=== PATIENT | female | born 1930 | race Asian ===

== ENCOUNTER 2017-12-29 02:06 | Inpatient (IN) | payer MEDICARE, OTHER ==
[2017-12-29 03:22] LABS: ADD MAN DIFF? NO
[2017-12-29 03:24] LABS: BASOPHILS % 0.3 % (0.0-2.0); EOSINOPHILS # 0.1 10^3/ul (0.0-0.5); EOSINOPHILS % 1.9 % (0.0-7.0); HEMATOCRIT 25.3 % (37.0-47.0); HEMOGLOBIN 7.6 g/dl (12.0-16.0); LYMPHOCYTES # 0.8 10^3/ul (0.8-2.9); LYMPHOCYTES % 25.2 % (15.0-51.0); MEAN CORPUSCULAR HEMOGLOBIN 33.2 pg (29.0-33.0); MEAN CORPUSCULAR VOLUME 110.5 fl (82.0-101.0); MONOCYTE # 0.4 10^3/ul (0.3-0.9); MONOCYTES % 12.3 % (0.0-11.0); NEUTROPHIL # 1.9 10^3/ul (1.6-7.5); PLATELET COUNT 155 10^3/UL (140-415); RED BLOOD COUNT 2.29 10^6/ul (4.20-5.40)
[2017-12-29 03:24] LABS: WHITE BLOOD COUNT 3.2 10^3/ul (4.8-10.8)
[2017-12-29 03:44] LABS: INR 1.05; PROTIME 13.8 Sec (11.9-14.9); PT RATIO 1.1
[2017-12-29 03:45] LABS: PARTIAL THROMBOPLASTIN TIME 33.5 Sec (25.0-35.0)
[2017-12-29 04:12] LABS: ANION GAP 20 (8-16); BLOOD UREA NITROGEN 30 mg/dl (7-20); CALCIUM 9.4 mg/dl (8.4-10.2); CARBON DIOXIDE 27 mmol/L (21-31); CHLORIDE 102 mmol/L (97-110); CREATININE 2.45 mg/dl (0.44-1.00); GLUCOSE 81 mg/dl (70-220); POTASSIUM 5.7 mmol/L (3.5-5.1); SODIUM 143 mmol/L (135-144)
[2017-12-29] MEDS: ALBUTEROL 0.5% (NEB) 2.5 MG/0.5 ML AMP INH (04:54)
[2017-12-29] MEDS ORDERED: DEXTROSE 50% 50 ML SYRINGE IV (05:00)
[2017-12-29] MEDS: ACETAMINOPHEN 325 MG TAB PO ×3 (05:13→16:51)
[2017-12-29] MEDS ORDERED: ACETAMINOPHEN 650MG/20.3ML CUP (05:14)
[2017-12-29] MEDS: INSULIN REGULAR, HUMAN 100 UNIT/1 ML 3ML VIAL IVP (05:21)
[2017-12-29] MEDS: DEXTROSE 50% 50 ML SYRINGE IV (05:22)
[2017-12-29] MEDS: NA POLYST SULFON 15 GM/60 ML BTL PO (05:22)
[2017-12-29] MEDS: DILTIAZEM 25 MG INJ IV (07:50)
[2017-12-29] MEDS: DIGOXIN 0.125 MG TAB PO ×2 (07:50→12:21)
[2017-12-29] MEDS ORDERED: ONDANSETRON 4 MG INJ IV (08:00)
[2017-12-29 08:14] LABS: ADD MAN DIFF? NO
[2017-12-29 08:16] LABS: ABNORMAL IP MESSAGE 1; EOSINOPHILS % 0.5 % (0.0-7.0); HEMATOCRIT 23.1 % (37.0-47.0); HEMOGLOBIN 7.2 g/dl (12.0-16.0); LYMPHOCYTES # 0.2 10^3/ul (0.8-2.9); LYMPHOCYTES % 7.9 % (15.0-51.0); MEAN CORPUSCULAR HEMOGLOBIN 33.8 pg (29.0-33.0); MEAN CORPUSCULAR HGB CONC 31.2 g/dl (32.0-37.0); MEAN CORPUSCULAR VOLUME 108.5 fl (82.0-101.0); MEAN PLATELET VOLUME 10.4 fl (7.4-10.4); NEUTROPHIL # 1.7 10^3/ul (1.6-7.5); NEUTROPHILS % 90.1 % (39.0-77.0); PLATELET COUNT 119 10^3/UL (140-415); RED BLOOD COUNT 2.13 10^6/ul (4.20-5.40); RED CELL DISTRIBUTION WIDTH 17.8 % (11.5-14.5)
[2017-12-29 08:19] LABS: POSITIVE DIFF @See below
[2017-12-29 08:34] LABS: ANION GAP 19 (8-16); BLOOD UREA NITROGEN 32 mg/dl (7-20); CALCIUM 9.6 mg/dl (8.4-10.2); CARBON DIOXIDE 25 mmol/L (21-31); CHLORIDE 103 mmol/L (97-110); CREATININE 2.62 mg/dl (0.44-1.00); GLUCOSE 79 mg/dl (70-220); SODIUM 143 mmol/L (135-144)
[2017-12-29 08:48] LABS: TROPONIN-I 0.153 ng/ml (0.000-0.120)
[2017-12-29] MEDS ORDERED: NUT TX IMPAIRED RENAL FXN SOY PO (09:00)
[2017-12-29] MEDS ORDERED: NITROGLYCERIN (SL) 0.4 MG TAB SL (09:00)
[2017-12-29] MEDS ORDERED: [UNRECOGNIZED DRUG - OTHER] PO (09:00)
[2017-12-29] MEDS: FOLIC ACID 1 MG TAB PO (09:21)
[2017-12-29] MEDS: MULTIVIT/CA CARB/B CMPLX/FA TAB PO (09:21)
[2017-12-29] MEDS: DOCUSATE SODIUM 100 MG CAP PO (09:21)
[2017-12-29] MEDS: MIDODRINE 5 MG TAB PO ×2 (09:21→16:52)
[2017-12-29] MEDS: DILTIAZEM 30 MG TAB PO ×3 (09:22→21:54)
[2017-12-29] MEDS: DEXTROSE 5%-0.45% NACL 1,000 ML IV (09:23)
[2017-12-29] MEDS: PANTOPRAZOLE 40 MG INJ IV (09:27)
[2017-12-29] MEDS: FLUDROCORTISONE 0.1 MG TAB PO (10:18)
[2017-12-29] MEDS: LACTOBACILLUS RHAMNOSUS CAP PO ×2 (10:18→21:54)
[2017-12-29] MEDS: DIGOXIN 500 MCG INJ IV (10:19)
[2017-12-29 10:21] LABS: WHITE BLOOD COUNT 1.9 10^3/ul (4.8-10.8)
[2017-12-29] MEDS: SEVELAMER CARBONATE 0.8 GM PKT PO ×2 (12:20→18:09)
[2017-12-29] MEDS ORDERED: NA POLYST SULFON 15 GM/60 ML BTL PO (13:00)
[2017-12-29] MEDS: HYDROCODONE/APAP (5/325) TAB PO (13:12)
[2017-12-29] MEDS: morphine 2 MG INJ IV ×2 (14:34→18:17)
[2017-12-29] MEDS: LORAZEPAM 0.5 MG TAB PO (15:40)
[2017-12-29] MEDS ORDERED: morphine 2 MG INJ IV (21:00)
[2017-12-29] MEDS: SENNA TAB PO (21:53)
[2017-12-29] MEDS: ATORVASTATIN 40 MG TAB PO (21:54)
[2017-12-29 23:00] LABS: HEMOGLOBIN 6.8 g/dl (12.0-16.0)
[2017-12-30] MEDS: PANTOPRAZOLE 40 MG INJ IV (06:00)
[2017-12-30 06:29] LABS: WHITE BLOOD COUNT 11.8 10^3/ul (4.8-10.8)
[2017-12-30 06:29] LABS: ABNORMAL IP MESSAGE 1; HEMATOCRIT 19.4 % (37.0-47.0); MEAN CORPUSCULAR HEMOGLOBIN 33.1 pg (29.0-33.0); MEAN CORPUSCULAR HGB CONC 30.9 g/dl (32.0-37.0); MEAN CORPUSCULAR VOLUME 107.2 fl (82.0-101.0); MEAN PLATELET VOLUME 11.6 fl (7.4-10.4); PLATELET COUNT 79 10^3/UL (140-415); RED BLOOD COUNT 1.81 10^6/ul (4.20-5.40); RED CELL DISTRIBUTION WIDTH 18.1 % (11.5-14.5)
[2017-12-30 06:47] LABS: CREATINE KINASE 930 IU/L (23-200)
[2017-12-30 06:47] LABS: PHOSPHORUS 6.4 mg/dl (2.5-4.9)
[2017-12-30 06:48] LABS: CK-MB 8.92 ng/ml (0.0-2.4)
[2017-12-30 06:53] LABS: TROPONIN-I 0.241 ng/ml (0.000-0.120)
[2017-12-30 07:07] LABS: ADD MAN DIFF? YES; POSITIVE DIFF @See below
[2017-12-30 07:31] LABS: ANION GAP 19 (8-16); BLOOD UREA NITROGEN 41 mg/dl (7-20); CALCIUM 9.3 mg/dl (8.4-10.2); CARBON DIOXIDE 25 mmol/L (21-31); CHLORIDE 101 mmol/L (97-110); CREATININE 3.56 mg/dl (0.44-1.00); POTASSIUM 5.9 mmol/L (3.5-5.1); SODIUM 139 mmol/L (135-144)
[2017-12-30 07:40] LABS: GLUCOSE 48 mg/dl (70-220)
[2017-12-30] MEDS: LACTOBACILLUS RHAMNOSUS CAP PO ×2 (08:49→20:25)
[2017-12-30] MEDS: DILTIAZEM 30 MG TAB PO ×3 (08:49→20:25)
[2017-12-30] MEDS: DOCUSATE SODIUM 100 MG CAP PO (08:50)
[2017-12-30] MEDS: MULTIVIT/CA CARB/B CMPLX/FA TAB PO (08:50)
[2017-12-30] MEDS: MIDODRINE 5 MG TAB PO ×2 (08:50→17:33)
[2017-12-30] MEDS: SEVELAMER CARBONATE 0.8 GM PKT PO ×3 (08:50→17:33)
[2017-12-30] MEDS: FOLIC ACID 1 MG TAB PO (08:50)
[2017-12-30] MEDS: FLUDROCORTISONE 0.1 MG TAB PO (08:50)
[2017-12-30 09:33] LABS: ANISOCYTOSIS 2+ (0-0); BAND NEUTROPHILS #M 2.1 10^3/ul (0.0-0.6); BAND NEUTROPHILS % (M) 18 % (0-4); EOSINOPHILS % (M) 1 % (0-7); LYMPHOCYTES #M 0.4 10^3/ul (0.8-2.9); LYMPHOCYTES % (M) 4 % (15-51); MONOCYTES % (M) 9 % (0-11); OVALOCYTES 2+ (0-0); PLATELET ESTIMATE DECREASED; POIKILOCYTOSIS 2+ (0-0); POLYCHROMASIA 1+ (0-0); SCHISTOCYTES 1+ (0-0); SEG NEUT #M 8.3 10^3/ul (1.6-7.5); SEGMENTED NEUTROPHILS (M) % 68 % (39-77); SMUDGE%M 2 % (0-0); TEAR DROP CELLS 1+ (0-0)
[2017-12-30] MEDS: EPOETIN 10000 UNITS/1 ML INJ (ESRD) SC (10:00)
[2017-12-30 11:13] LABS: IMMEDIATE SPIN CROSSMATCH 1 4
[2017-12-30] MEDS: NA POLYST SULFON 15 GM/60 ML BTL PO ×2 (15:09→18:51)
[2017-12-30 19:09] LABS: DIGOXIN 3.9 ng/ml (1.0-2.0)
[2017-12-30 20:15] LABS: HEPATITIS B SURFACE ANTIGEN NEGATIVE (NEGATIVE)
[2017-12-30] MEDS: SENNA TAB PO (20:21)
[2017-12-30] MEDS: ATORVASTATIN 40 MG TAB PO (20:21)
[2017-12-31] MEDS: HEPARIN 1000 UNITS/ML 10 ML INJ CATHETER
[2017-12-31] MEDS: PANTOPRAZOLE 40 MG INJ IV (05:53)
[2017-12-31 08:48] LABS: WHITE BLOOD COUNT 8.9 10^3/ul (4.8-10.8)
[2017-12-31 08:48] LABS: ABNORMAL IP MESSAGE 1; HEMATOCRIT 27.1 % (37.0-47.0); HEMOGLOBIN 8.8 g/dl (12.0-16.0); MEAN CORPUSCULAR HEMOGLOBIN 31.9 pg (29.0-33.0); MEAN CORPUSCULAR HGB CONC 32.5 g/dl (32.0-37.0); MEAN CORPUSCULAR VOLUME 98.2 fl (82.0-101.0); MEAN PLATELET VOLUME 11.4 fl (7.4-10.4); PLATELET COUNT 83 10^3/UL (140-415); RED BLOOD COUNT 2.76 10^6/ul (4.20-5.40); RED CELL DISTRIBUTION WIDTH 18.9 % (11.5-14.5)
[2017-12-31 08:54] LABS: ADD MAN DIFF? YES; POSITIVE DIFF @See below
[2017-12-31] MEDS: DILTIAZEM 30 MG TAB PO ×3 (09:00→21:00)
[2017-12-31 09:08] LABS: ALANINE AMINOTRANSFERASE 52 IU/L (13-69); ALBUMIN 2.7 g/dl (3.3-4.9); ALBUMIN/GLOBULIN RATIO 1.22; ALKALINE PHOSPHATASE 96 IU/L (42-121); ANION GAP 12 (8-16); ASPARTATE AMINO TRANSFERASE 54 IU/L (15-46); BILIRUBIN,INDIRECT 0.6 mg/dl (0-1.1); BILIRUBIN,TOTAL 0.6 mg/dl (0.2-1.3); BLOOD UREA NITROGEN 23 mg/dl (7-20); CALCIUM 8.6 mg/dl (8.4-10.2); CARBON DIOXIDE 29 mmol/L (21-31); CHLORIDE 104 mmol/L (97-110); CREATININE 2.18 mg/dl (0.44-1.00); GLUCOSE 60 mg/dl (70-220); POTASSIUM 3.5 mmol/L (3.5-5.1); SODIUM 141 mmol/L (135-144); TOTAL PROTEIN 4.9 g/dl (6.1-8.1)
[2017-12-31 09:17] LABS: CK-MB 2.53 ng/ml (0.0-2.4)
[2017-12-31 09:19] LABS: TROPONIN-I 0.216 ng/ml (0.000-0.120)
[2017-12-31 09:42] LABS: CK INDEX 0.7; CREATINE KINASE 373 IU/L (23-200)
[2017-12-31] MEDS: LACTOBACILLUS RHAMNOSUS CAP PO ×2 (09:49→21:13)
[2017-12-31] MEDS: MULTIVIT/CA CARB/B CMPLX/FA TAB PO (09:49)
[2017-12-31] MEDS: SEVELAMER CARBONATE 0.8 GM PKT PO ×3 (09:49→17:14)
[2017-12-31] MEDS: MIDODRINE 5 MG TAB PO ×2 (09:52→17:14)
[2017-12-31] MEDS: FLUDROCORTISONE 0.1 MG TAB PO (09:52)
[2017-12-31] MEDS: FOLIC ACID 1 MG TAB PO (09:52)
[2017-12-31] MEDS: DOCUSATE SODIUM 100 MG CAP PO (09:53)
[2017-12-31] MEDS: ERGOCALCIFEROL 50,000 UNIT CAP PO (09:53)
[2017-12-31] MEDS: DEXTROSE 5%-0.45% NACL 1,000 ML IV (10:02)
[2017-12-31 10:05] LABS: ANISOCYTOSIS 1+ (0-0); BAND NEUTROPHILS #M 2.4 10^3/ul (0.0-0.6); BAND NEUTROPHILS % (M) 27 % (0-4); EOSINOPHILS % (M) 1 % (0-7); LYMPHOCYTES #M 0.6 10^3/ul (0.8-2.9); LYMPHOCYTES % (M) 7 % (15-51); MONOCYTES % (M) 1 % (0-11); PLATELET ESTIMATE DECREASED; POLYCHROMASIA 1+ (0-0); SEG NEUT #M 5.9 10^3/ul (1.6-7.5); SEGMENTED NEUTROPHILS (M) % 64 % (39-77); SPHEROCYTES 1+ (0-0)
[2017-12-31] MEDS: ALBUMIN HUMAN 25% 50 ML IV (11:08)
[2017-12-31 16:23] LABS: FREE T4 (FREE THYROXINE) 0.95 ng/dl (0.85-1.93)
[2017-12-31] MEDS: EPOETIN 10000 UNITS/1 ML INJ (ESRD) SC (17:19)
[2017-12-31] MEDS: ATORVASTATIN 40 MG TAB PO (21:13)
[2017-12-31] MEDS: SENNA TAB PO (21:13)
[2018-01-01] MEDS: PANTOPRAZOLE 40 MG INJ IV (05:16)
[2018-01-01] MEDS: DEXTROSE 5%-0.45% NACL 1,000 ML IV (05:16)
[2018-01-01 07:52] LABS: ADD MAN DIFF? NO
[2018-01-01 08:00] LABS: WHITE BLOOD COUNT 6.8 10^3/ul (4.8-10.8)
[2018-01-01 08:00] LABS: ABNORMAL IP MESSAGE 1; BASOPHILS % 0.4 % (0.0-2.0); EOSINOPHILS # 0.1 10^3/ul (0.0-0.5); EOSINOPHILS % 1.2 % (0.0-7.0); HEMATOCRIT 28.6 % (37.0-47.0); HEMOGLOBIN 9.2 g/dl (12.0-16.0); LYMPHOCYTES # 0.7 10^3/ul (0.8-2.9); LYMPHOCYTES % 10.4 % (15.0-51.0); MEAN CORPUSCULAR HEMOGLOBIN 31.8 pg (29.0-33.0); MEAN CORPUSCULAR HGB CONC 32.2 g/dl (32.0-37.0); MONOCYTE # 0.4 10^3/ul (0.3-0.9); MONOCYTES % 6.5 % (0.0-11.0); NEUTROPHIL # 5.5 10^3/ul (1.6-7.5); NEUTROPHILS % 81.1 % (39.0-77.0); PLATELET COUNT 77 10^3/UL (140-415); RED BLOOD COUNT 2.89 10^6/ul (4.20-5.40); RED CELL DISTRIBUTION WIDTH 17.9 % (11.5-14.5)
[2018-01-01 08:07] LABS: POSITIVE DIFF @See below
[2018-01-01 08:22] LABS: MAGNESIUM 1.9 mg/dl (1.7-2.5)
[2018-01-01 08:22] LABS: PHOSPHORUS 4.8 mg/dl (2.5-4.9)
[2018-01-01 08:31] LABS: BLOOD UREA NITROGEN 33 mg/dl (7-20); CALCIUM 8.5 mg/dl (8.4-10.2); CARBON DIOXIDE 28 mmol/L (21-31); CHLORIDE 98 mmol/L (97-110); CREATININE 3.46 mg/dl (0.44-1.00); GLUCOSE 76 mg/dl (70-220); SODIUM 138 mmol/L (135-144)
[2018-01-01 09:00] LABS: ANION GAP 15 (8-16)
[2018-01-01 09:03] LABS: POTASSIUM 3.3 mmol/L (3.5-5.1)
[2018-01-01] MEDS: FOLIC ACID 1 MG TAB PO (09:33)
[2018-01-01] MEDS: SEVELAMER CARBONATE 0.8 GM PKT PO ×3 (09:33→17:37)
[2018-01-01] MEDS: FLUDROCORTISONE 0.1 MG TAB PO (09:33)
[2018-01-01] MEDS: MULTIVIT/CA CARB/B CMPLX/FA TAB PO (09:33)
[2018-01-01] MEDS: DOCUSATE SODIUM 100 MG CAP PO (09:34)
[2018-01-01] MEDS: MIDODRINE 5 MG TAB PO ×2 (09:35→17:42)
[2018-01-01] MEDS: LACTOBACILLUS RHAMNOSUS CAP PO ×2 (09:36→20:18)
[2018-01-01] MEDS: DILTIAZEM 30 MG TAB PO ×3 (09:37→20:19)
[2018-01-01] MEDS: POTASSIUM CHLORIDE (SR) 20 MEQ TAB PO (13:14)
[2018-01-01] MEDS ORDERED: ALBUMIN HUMAN 25% 50 ML IV (18:00)
[2018-01-01] MEDS ORDERED: SODIUM CHLORIDE 0.9% 1L BAG IV (18:00)
[2018-01-01] MEDS: SENNA TAB PO (20:18)
[2018-01-01] MEDS: ATORVASTATIN 40 MG TAB PO (20:18)
[2018-01-02] MEDS: DEXTROSE 5%-0.45% NACL 1,000 ML IV (04:13)
[2018-01-02] MEDS: PANTOPRAZOLE 40 MG INJ IV (05:29)
[2018-01-02] MEDS: SEVELAMER CARBONATE 0.8 GM PKT PO ×3 (08:50→17:20)
[2018-01-02 09:01] LABS: DIGOXIN 2.4 ng/ml (1.0-2.0)
[2018-01-02] MEDS: FOLIC ACID 1 MG TAB PO (09:23)
[2018-01-02] MEDS: LACTOBACILLUS RHAMNOSUS CAP PO ×2 (09:23→21:09)
[2018-01-02] MEDS: DOCUSATE SODIUM 100 MG CAP PO (09:24)
[2018-01-02] MEDS: MULTIVIT/CA CARB/B CMPLX/FA TAB PO (09:24)
[2018-01-02] MEDS: FLUDROCORTISONE 0.1 MG TAB PO (09:24)
[2018-01-02] MEDS: MIDODRINE 5 MG TAB PO (09:55)
[2018-01-02] MEDS: DILTIAZEM 30 MG TAB PO ×3 (09:55→21:09)
[2018-01-02] MEDS ORDERED: morphine 2 MG INJ (15:31)
[2018-01-02] MEDS: morphine 2 MG INJ IV (15:33)
[2018-01-02] MEDS: DILTIAZEM 25 MG INJ IV (15:34)
[2018-01-02] MEDS ORDERED: LEVALBUTEROL (NEB) 0.63 MG/3 ML AMP (15:34)
[2018-01-02] MEDS: LEVALBUTEROL (NEB) 0.63 MG/3 ML AMP HHN (15:43)
[2018-01-02 17:09] LABS: TROPONIN-I 0.075 ng/ml (0.000-0.120)
[2018-01-02] MEDS: EPOETIN 10000 UNITS/1 ML INJ (ESRD) SC (17:21)
[2018-01-02] MEDS: ATORVASTATIN 40 MG TAB PO (21:09)
[2018-01-02] MEDS: SENNA TAB PO (21:09)
[2018-01-02] MEDS: MEGESTROL (40 MG/ML) 10ML CUP PO (21:12)
[2018-01-03] MEDS: HEPARIN 1000 UNITS/ML 10 ML INJ CATHETER (03:13)
[2018-01-03] MEDS: PANTOPRAZOLE 40 MG INJ IV (05:42)
[2018-01-03 08:27] LABS: ADD MAN DIFF? NO
[2018-01-03 08:31] LABS: WHITE BLOOD COUNT 4.5 10^3/ul (4.8-10.8)
[2018-01-03 08:31] LABS: ABNORMAL IP MESSAGE 1; BASOPHILS % 0.9 % (0.0-2.0); EOSINOPHILS % 0.9 % (0.0-7.0); HEMATOCRIT 30.8 % (37.0-47.0); HEMOGLOBIN 9.8 g/dl (12.0-16.0); LYMPHOCYTES # 0.7 10^3/ul (0.8-2.9); MEAN CORPUSCULAR HEMOGLOBIN 31.6 pg (29.0-33.0); MEAN CORPUSCULAR HGB CONC 31.8 g/dl (32.0-37.0); MEAN CORPUSCULAR VOLUME 99.4 fl (82.0-101.0); MEAN PLATELET VOLUME 11.2 fl (7.4-10.4); MONOCYTE # 0.5 10^3/ul (0.3-0.9); MONOCYTES % 10.9 % (0.0-11.0); NEUTROPHIL # 3.2 10^3/ul (1.6-7.5); NEUTROPHILS % 70.2 % (39.0-77.0); PLATELET COUNT 85 10^3/UL (140-415); RED CELL DISTRIBUTION WIDTH 16.8 % (11.5-14.5)
[2018-01-03 08:45] LABS: POSITIVE DIFF @See below
[2018-01-03 09:04] LABS: ANION GAP 18 (8-16); BLOOD UREA NITROGEN 24 mg/dl (7-20); CALCIUM 8.8 mg/dl (8.4-10.2); CARBON DIOXIDE 25 mmol/L (21-31); CHLORIDE 100 mmol/L (97-110); GLUCOSE 57 mg/dl (70-220); POTASSIUM 4.2 mmol/L (3.5-5.1); SODIUM 139 mmol/L (135-144)
[2018-01-03] MEDS: LACTOBACILLUS RHAMNOSUS CAP PO ×2 (09:05→21:40)
[2018-01-03] MEDS: SEVELAMER CARBONATE 0.8 GM PKT PO ×3 (09:05→17:33)
[2018-01-03] MEDS: MULTIVIT/CA CARB/B CMPLX/FA TAB PO (09:05)
[2018-01-03] MEDS: DOCUSATE SODIUM 100 MG CAP PO (09:05)
[2018-01-03] MEDS: FOLIC ACID 1 MG TAB PO (09:05)
[2018-01-03] MEDS: MEGESTROL (40 MG/ML) 10ML CUP PO ×2 (09:05→21:39)
[2018-01-03] MEDS: DILTIAZEM 30 MG TAB PO ×3 (09:06→21:40)
[2018-01-03 09:07] LABS: PHOSPHORUS 4.2 mg/dl (2.5-4.9)
[2018-01-03 09:07] LABS: MAGNESIUM 1.9 mg/dl (1.7-2.5)
[2018-01-03] MEDS: LORAZEPAM 0.5 MG TAB PO (17:33)
[2018-01-03] MEDS ORDERED: HEPARIN 1000 UNITS/ML 10 ML INJ CATHETER (19:00)
[2018-01-03] MEDS ORDERED: ALBUMIN HUMAN 25% 50 ML IV (19:00)
[2018-01-03] MEDS ORDERED: SODIUM CHLORIDE 0.9% 1L BAG IV (19:00)
[2018-01-03] MEDS: ATORVASTATIN 40 MG TAB PO (21:40)
[2018-01-03] MEDS: SENNA TAB PO (21:40)
[2018-01-04] MEDS: PANTOPRAZOLE 40 MG INJ IV (06:02)
[2018-01-04 07:26] LABS: ADD MAN DIFF? NO
[2018-01-04 07:28] LABS: WHITE BLOOD COUNT 3.7 10^3/ul (4.8-10.8)
[2018-01-04 07:28] LABS: ABNORMAL IP MESSAGE 1; BASOPHILS % 1.1 % (0.0-2.0); EOSINOPHILS # 0.1 10^3/ul (0.0-0.5); EOSINOPHILS % 2.2 % (0.0-7.0); HEMATOCRIT 31.8 % (37.0-47.0); HEMOGLOBIN 10.1 g/dl (12.0-16.0); LYMPHOCYTES # 0.7 10^3/ul (0.8-2.9); LYMPHOCYTES % 18.3 % (15.0-51.0); MEAN CORPUSCULAR HEMOGLOBIN 32.6 pg (29.0-33.0); MEAN CORPUSCULAR HGB CONC 31.8 g/dl (32.0-37.0); MEAN CORPUSCULAR VOLUME 102.6 fl (82.0-101.0); MEAN PLATELET VOLUME 11.1 fl (7.4-10.4); MONOCYTE # 0.5 10^3/ul (0.3-0.9); MONOCYTES % 13.4 % (0.0-11.0); NEUTROPHIL # 2.4 10^3/ul (1.6-7.5); NEUTROPHILS % 64.5 % (39.0-77.0); PLATELET COUNT 93 10^3/UL (140-415); RED CELL DISTRIBUTION WIDTH 17.2 % (11.5-14.5)
[2018-01-04 07:49] LABS: POSITIVE DIFF @See below
[2018-01-04 07:58] LABS: ANION GAP 15 (8-16); BLOOD UREA NITROGEN 35 mg/dl (7-20); CARBON DIOXIDE 26 mmol/L (21-31); CHLORIDE 102 mmol/L (97-110); CREATININE 4.17 mg/dl (0.44-1.00); GLUCOSE 68 mg/dl (70-220); POTASSIUM 4.5 mmol/L (3.5-5.1); SODIUM 138 mmol/L (135-144)
[2018-01-04] MEDS: SEVELAMER CARBONATE 0.8 GM PKT PO ×3 (08:00→17:22)
[2018-01-04] MEDS: FOLIC ACID 1 MG TAB PO (08:13)
[2018-01-04] MEDS: DOCUSATE SODIUM 100 MG CAP PO (08:13)
[2018-01-04] MEDS: MEGESTROL (40 MG/ML) 10ML CUP PO ×2 (08:13→21:00)
[2018-01-04] MEDS: LACTOBACILLUS RHAMNOSUS CAP PO ×2 (08:13→21:00)
[2018-01-04] MEDS: MULTIVIT/CA CARB/B CMPLX/FA TAB PO (08:13)
[2018-01-04 08:28] LABS: MAGNESIUM 2.1 mg/dl (1.7-2.5)
[2018-01-04] MEDS: DILTIAZEM 30 MG TAB PO ×3 (08:55→21:00)
[2018-01-04] MEDS: DEXTROSE 5% 1,000 ML IV (11:42)
[2018-01-04] MEDS ORDERED: FENTAnyl 50 MCG/ML VIAL (17:43)
[2018-01-04] MEDS ORDERED: KETAMINE (100 MG/ML) 5 ML VIAL (17:44)
[2018-01-04] MEDS ORDERED: MIDAZOLAM 1 MG/ML 2 ML INJ (18:04)
[2018-01-04] MEDS ORDERED: PHENYLephrine (100 MCG/ML) 5ML SYG (18:07)
[2018-01-04] MEDS ORDERED: PHENYLephrine 10 MG INJ ×2 (18:21→18:22)
[2018-01-04] MEDS: HEPARIN 1000 UNITS/ML 10 ML INJ (18:23)
[2018-01-04] MEDS: POLYMYXIN/BACITRACIN 1L IRRIG (18:23)
[2018-01-04] MEDS: LIDOCAINE 1% (MPF) 30 ML INJ (18:23)
[2018-01-04] MEDS ORDERED: THROMBIN 5000 UNIT VIAL (18:44)
[2018-01-04] MEDS: GELATIN SIZE 100 SPONGE (18:49)
[2018-01-04] MEDS ORDERED: ETOMIDATE 20 MG INJ (19:25)
[2018-01-04] MEDS ORDERED: LIDOCAINE 2% (SDV) 5 ML INJ (19:25)
[2018-01-04] MEDS ORDERED: CEFAZOLIN 1 GM INJ (19:25)
[2018-01-04] MEDS ORDERED: ONDANSETRON 4 MG INJ (19:26)
[2018-01-04] MEDS: SENNA TAB PO (21:00)
[2018-01-04] MEDS: BALSAM PERU/CASTOR OIL 60 GM TUBE TOP (21:00)
[2018-01-04] MEDS: ATORVASTATIN 40 MG TAB PO (21:00)
[2018-01-05] MEDS: EPOETIN 10000 UNITS/1 ML INJ (ESRD) SC (06:09)
[2018-01-05] MEDS: PANTOPRAZOLE 40 MG INJ IV (06:09)
[2018-01-05 06:12] LABS: ADD MAN DIFF? NO
[2018-01-05 06:14] LABS: WHITE BLOOD COUNT 2.9 10^3/ul (4.8-10.8)
[2018-01-05 06:14] LABS: ABNORMAL IP MESSAGE 1; BASOPHILS % 0.7 % (0.0-2.0); EOSINOPHILS # 0.1 10^3/ul (0.0-0.5); HEMATOCRIT 28.2 % (37.0-47.0); HEMOGLOBIN 8.9 g/dl (12.0-16.0); LYMPHOCYTES # 0.3 10^3/ul (0.8-2.9); LYMPHOCYTES % 11.3 % (15.0-51.0); MEAN CORPUSCULAR HEMOGLOBIN 31.8 pg (29.0-33.0); MEAN CORPUSCULAR HGB CONC 31.6 g/dl (32.0-37.0); MEAN CORPUSCULAR VOLUME 100.7 fl (82.0-101.0); MEAN PLATELET VOLUME 11.1 fl (7.4-10.4); MONOCYTE # 0.3 10^3/ul (0.3-0.9); MONOCYTES % 8.9 % (0.0-11.0); NEUTROPHIL # 2.3 10^3/ul (1.6-7.5); NEUTROPHILS % 76.8 % (39.0-77.0); PLATELET COUNT 99 10^3/UL (140-415); RED CELL DISTRIBUTION WIDTH 17.3 % (11.5-14.5)
[2018-01-05 06:33] LABS: POSITIVE DIFF @See below
[2018-01-05 06:35] LABS: ANION GAP 10 (8-16); BLOOD UREA NITROGEN 17 mg/dl (7-20); CALCIUM 8.5 mg/dl (8.4-10.2); CARBON DIOXIDE 30 mmol/L (21-31); CHLORIDE 102 mmol/L (97-110); CREATININE 2.25 mg/dl (0.44-1.00); GLUCOSE 77 mg/dl (70-220); POTASSIUM 3.6 mmol/L (3.5-5.1); SODIUM 138 mmol/L (135-144)
[2018-01-05] MEDS: HEPARIN 1000 UNITS/ML 10 ML INJ CATHETER (07:12)
[2018-01-05] MEDS: LACTOBACILLUS RHAMNOSUS CAP PO ×2 (09:08→21:53)
[2018-01-05] MEDS: MULTIVIT/CA CARB/B CMPLX/FA TAB PO (09:08)
[2018-01-05] MEDS: MEGESTROL (40 MG/ML) 10ML CUP PO ×2 (09:08→21:54)
[2018-01-05] MEDS: ASPIRIN 81 MG TAB PO (09:08)
[2018-01-05] MEDS: SEVELAMER CARBONATE 0.8 GM PKT PO ×3 (09:08→17:39)
[2018-01-05] MEDS: BALSAM PERU/CASTOR OIL 60 GM TUBE TOP ×2 (09:08→21:54)
[2018-01-05] MEDS: HYDROCODONE/APAP (5/325) TAB PO ×2 (09:08→21:53)
[2018-01-05] MEDS: DOCUSATE SODIUM 100 MG CAP PO (09:09)
[2018-01-05] MEDS: FOLIC ACID 1 MG TAB PO (09:09)
[2018-01-05] MEDS: DILTIAZEM 30 MG TAB PO ×3 (09:09→21:54)
[2018-01-05] MEDS: LORAZEPAM 0.5 MG TAB PO (17:44)
[2018-01-05] MEDS: SENNA TAB PO (21:53)
[2018-01-05] MEDS: ATORVASTATIN 40 MG TAB PO (21:54)
[2018-01-06] MEDS ORDERED: PENDING SANTYL ORDER FOR WOUND CARE XX (05:00)
[2018-01-06] MEDS: PANTOPRAZOLE 40 MG INJ IV (05:26)
[2018-01-06] MEDS: FOLIC ACID 1 MG TAB PO (09:03)
[2018-01-06] MEDS: ASPIRIN 81 MG TAB PO (09:03)
[2018-01-06] MEDS: SEVELAMER CARBONATE 0.8 GM PKT PO ×3 (09:03→17:59)
[2018-01-06] MEDS: DOCUSATE SODIUM 100 MG CAP PO (09:03)
[2018-01-06] MEDS: MEGESTROL (40 MG/ML) 10ML CUP PO ×2 (09:03→20:37)
[2018-01-06] MEDS: MULTIVIT/CA CARB/B CMPLX/FA TAB PO (09:03)
[2018-01-06] MEDS: DILTIAZEM 30 MG TAB PO ×3 (09:04→20:36)
[2018-01-06] MEDS: BALSAM PERU/CASTOR OIL 60 GM TUBE TOP ×2 (09:04→20:38)
[2018-01-06] MEDS: LACTOBACILLUS RHAMNOSUS CAP PO ×2 (12:14→21:33)
[2018-01-06] MEDS: LORAZEPAM 0.5 MG TAB PO (17:59)
[2018-01-06] MEDS ORDERED: SODIUM CHLORIDE 0.9% 1L BAG IV (18:00)
[2018-01-06] MEDS ORDERED: ALBUMIN HUMAN 25% 50 ML IV (18:00)
[2018-01-06] MEDS: HYDROCODONE/APAP (5/325) TAB PO ×2 (20:08→21:32)
[2018-01-06] MEDS: ATORVASTATIN 40 MG TAB PO (20:35)
[2018-01-06] MEDS: SENNA TAB PO (20:36)
[2018-01-07] MEDS: ACETAMINOPHEN 325 MG TAB PO (04:14)
[2018-01-07] MEDS: PANTOPRAZOLE 40 MG INJ IV (05:23)
[2018-01-07] MEDS: DILTIAZEM 30 MG TAB PO ×3 (09:00→20:12)
[2018-01-07] MEDS: LACTOBACILLUS RHAMNOSUS CAP PO ×2 (09:05→20:12)
[2018-01-07] MEDS: SEVELAMER CARBONATE 0.8 GM PKT PO ×3 (09:05→17:12)
[2018-01-07] MEDS: FOLIC ACID 1 MG TAB PO (09:06)
[2018-01-07] MEDS: MULTIVIT/CA CARB/B CMPLX/FA TAB PO (09:06)
[2018-01-07] MEDS: ERGOCALCIFEROL 50,000 UNIT CAP PO (09:06)
[2018-01-07] MEDS: DOCUSATE SODIUM 100 MG CAP PO (09:07)
[2018-01-07] MEDS: MEGESTROL (40 MG/ML) 10ML CUP PO ×2 (09:08→20:13)
[2018-01-07] MEDS: ASPIRIN 81 MG TAB PO (09:08)
[2018-01-07] MEDS: BALSAM PERU/CASTOR OIL 60 GM TUBE TOP ×2 (09:09→20:13)
[2018-01-07 11:50] LABS: ADD MAN DIFF? NO
[2018-01-07 11:54] LABS: ABNORMAL IP MESSAGE 1; BASOPHILS % 0.4 % (0.0-2.0); EOSINOPHILS # 0.1 10^3/ul (0.0-0.5); EOSINOPHILS % 0.6 % (0.0-7.0); HEMATOCRIT 28.5 % (37.0-47.0); HEMOGLOBIN 8.9 g/dl (12.0-16.0); LYMPHOCYTES # 0.5 10^3/ul (0.8-2.9); LYMPHOCYTES % 4.4 % (15.0-51.0); MEAN CORPUSCULAR HEMOGLOBIN 31.6 pg (29.0-33.0); MEAN CORPUSCULAR HGB CONC 31.2 g/dl (32.0-37.0); MEAN CORPUSCULAR VOLUME 101.1 fl (82.0-101.0); MEAN PLATELET VOLUME 11.3 fl (7.4-10.4); MONOCYTE # 0.3 10^3/ul (0.3-0.9); MONOCYTES % 2.7 % (0.0-11.0); NEUTROPHIL # 9.5 10^3/ul (1.6-7.5); NEUTROPHILS % 91.4 % (39.0-77.0); PLATELET COUNT 110 10^3/UL (140-415); RED BLOOD COUNT 2.82 10^6/ul (4.20-5.40); RED CELL DISTRIBUTION WIDTH 18.1 % (11.5-14.5)
[2018-01-07 11:54] LABS: WHITE BLOOD COUNT 10.4 10^3/ul (4.8-10.8)
[2018-01-07 12:00] LABS: POSITIVE DIFF @See below
[2018-01-07 12:21] LABS: ANION GAP 17 (8-16); BLOOD UREA NITROGEN 38 mg/dl (7-20); CALCIUM 8.7 mg/dl (8.4-10.2); CARBON DIOXIDE 23 mmol/L (21-31); CHLORIDE 99 mmol/L (97-110); CREATININE 5.46 mg/dl (0.44-1.00); GLUCOSE 87 mg/dl (70-220); POTASSIUM 4.4 mmol/L (3.5-5.1); SODIUM 135 mmol/L (135-144)
[2018-01-07] MEDS: morphine LIQ (10 MG/5 ML) CUP PO (13:57)
[2018-01-07] MEDS: EPOETIN 10000 UNITS/1 ML INJ (ESRD) SC (17:12)
[2018-01-07] MEDS: LORAZEPAM 0.5 MG TAB PO (17:13)
[2018-01-07] MEDS: ATORVASTATIN 40 MG TAB PO (20:12)
[2018-01-07] MEDS: HYDROCODONE/APAP (5/325) TAB PO (20:13)
[2018-01-07] MEDS: SENNA TAB PO (20:13)
[2018-01-08] MEDS: HEPARIN 1000 UNITS/ML 10 ML INJ CATHETER (01:16)
[2018-01-08] MEDS ORDERED: ALBUMIN HUMAN 25% 100 ML ×3 (02:46→03:30)
[2018-01-08] MEDS ORDERED: NORepinephrine 8MG/250 ML (PMX 250 ML (03:58)
[2018-01-08] MEDS: NORepinephrine 8MG/250 ML (PMX 250 ML IV ×4 (04:15→20:30)
[2018-01-08 04:56] LABS: LACTIC ACID 1.7 mmol/L (0.5-2.0)
[2018-01-08 05:09] LABS: ALANINE AMINOTRANSFERASE 16 IU/L (13-69); ALBUMIN 4.1 g/dl (3.3-4.9); ALBUMIN/GLOBULIN RATIO 1.78; ALKALINE PHOSPHATASE 89 IU/L (42-121); ANION GAP 16 (8-16); ASPARTATE AMINO TRANSFERASE 23 IU/L (15-46); BILIRUBIN,INDIRECT 0.7 mg/dl (0-1.1); BILIRUBIN,TOTAL 0.7 mg/dl (0.2-1.3); BLOOD UREA NITROGEN 24 mg/dl (7-20); CARBON DIOXIDE 26 mmol/L (21-31); CHLORIDE 101 mmol/L (97-110); CREATINE KINASE 51 IU/L (23-200); CREATININE 3.82 mg/dl (0.44-1.00); GLUCOSE 83 mg/dl (70-220); MAGNESIUM 1.8 mg/dl (1.7-2.5); PHOSPHORUS 3.4 mg/dl (2.5-4.9); POTASSIUM 4.3 mmol/L (3.5-5.1); SODIUM 139 mmol/L (135-144); TOTAL PROTEIN 6.4 g/dl (6.1-8.1)
[2018-01-08 05:21] LABS: CK INDEX 3.4; CK-MB 1.72 ng/ml (0.0-2.4)
[2018-01-08 05:26] LABS: TROPONIN-I 0.259 ng/ml (0.000-0.120)
[2018-01-08] MEDS: LIDOCAINE 1% (MPF) 5 ML VIAL SC (06:00)
[2018-01-08] MEDS: PANTOPRAZOLE 40 MG INJ IV (06:33)
[2018-01-08] MEDS: ALBUMIN HUMAN 25% 100 ML IV ×5 (06:41→20:34)
[2018-01-08] MEDS: LIDOCAINE 1% (MPF) 10 ML INJ SC (08:00)
[2018-01-08] MEDS: LIDOCAINE 1% (MDV) 10 ML INJ INJ (08:30)
[2018-01-08] MEDS: ASPIRIN 81 MG TAB PO (08:55)
[2018-01-08] MEDS: MULTIVIT/CA CARB/B CMPLX/FA TAB PO (08:55)
[2018-01-08] MEDS: FOLIC ACID 1 MG TAB PO (08:55)
[2018-01-08] MEDS: LACTOBACILLUS RHAMNOSUS CAP PO ×2 (08:55→20:28)
[2018-01-08] MEDS: MIDODRINE 5 MG TAB PO ×3 (08:56→21:00)
[2018-01-08] MEDS: DILTIAZEM 30 MG TAB PO (08:56)
[2018-01-08] MEDS: MEGESTROL (40 MG/ML) 10ML CUP PO ×2 (08:57→20:28)
[2018-01-08] MEDS: SEVELAMER CARBONATE 0.8 GM PKT PO ×3 (08:57→17:06)
[2018-01-08] MEDS: BALSAM PERU/CASTOR OIL 60 GM TUBE TOP ×2 (09:00→21:00)
[2018-01-08] MEDS: DOCUSATE SODIUM 100 MG CAP PO (09:30)
[2018-01-08 12:30] LABS: CREATINE KINASE 54 IU/L (23-200)
[2018-01-08] MEDS ORDERED: VANCOMYCIN IV PER PHARMACY XX (12:30)
[2018-01-08] MEDS ORDERED: ALBUMIN HUMAN 25% 50 ML IV (12:30)
[2018-01-08] MEDS ORDERED: SODIUM CHLORIDE 0.9% 1L BAG IV ×2 (12:30)
[2018-01-08] MEDS ORDERED: HEPARIN 1000 UNITS/ML 10 ML INJ CATHETER (12:30)
[2018-01-08 12:41] LABS: CK INDEX 1.5
[2018-01-08 12:50] LABS: TROPONIN-I 0.148 ng/ml (0.000-0.120)
[2018-01-08 13:01] LABS: AADO2 Arterial 407.9 mmHg (7.0-24.0); Allen Test ACCEPTAB; Arterial Base Excess 0.3 mmol/L (-3.0-3); Arterial Blood Gas Oxygen Sat 99.3 mmHG (95.0-100.0); Arterial COHb 0.2 % (0.0-3.0); Arterial Fraction of Oxyhgb 98.8 % (93.0-99.0); Arterial HCO3 23.6 mmol/L (22.0-26.0); Arterial MetHb 0.3 % (0.0-1.5); Arterial Total Hemglobin 8.7 g/dl (12.0-18.0); MODE MASK - NRB; Site Left Radial
[2018-01-08] MEDS: DEXTROSE 5% 1,000 ML IV (13:34)
[2018-01-08] MEDS: PHENYLephrine 80 MG in DEXTROSE 5% 492 ML IV ×2 (13:45→20:32)
[2018-01-08] MEDS: CEFTRIAXONE 1 GM/50 ML (PMX) 50 ML IVPB (14:28)
[2018-01-08] MEDS: VANCOMYCIN 1 GM 250 ML IVPB (14:47)
[2018-01-08] MEDS: LORAZEPAM 0.5 MG TAB PO (15:27)
[2018-01-08 18:46] LABS: CREATINE KINASE 64 IU/L (23-200)
[2018-01-08 18:59] LABS: CK INDEX 3.2; CK-MB 2.03 ng/ml (0.0-2.4)
[2018-01-08 19:08] LABS: TROPONIN-I 0.483 ng/ml (0.000-0.120)
[2018-01-08] MEDS: ATORVASTATIN 40 MG TAB PO (20:28)
[2018-01-08] MEDS: SENNA TAB PO (20:28)
[2018-01-08] MEDS ORDERED: ROCURONIUM 50 MG INJ (21:40)
[2018-01-08] MEDS: HYDROCORTISONE 100 MG INJ IV (22:30)
[2018-01-08 22:38] LABS: ABNORMAL IP MESSAGE 1; ADD MAN DIFF? NO; BASOPHILS % 0.2 % (0.0-2.0); EOSINOPHILS % 0.2 % (0.0-7.0); HEMATOCRIT 23.6 % (37.0-47.0); HEMOGLOBIN 7.2 g/dl (12.0-16.0); LYMPHOCYTES # 0.4 10^3/ul (0.8-2.9); LYMPHOCYTES % 2.9 % (15.0-51.0); MEAN CORPUSCULAR HEMOGLOBIN 31.9 pg (29.0-33.0); MEAN CORPUSCULAR HGB CONC 30.5 g/dl (32.0-37.0); MEAN CORPUSCULAR VOLUME 104.4 fl (82.0-101.0); MEAN PLATELET VOLUME 11.3 fl (7.4-10.4); MONOCYTE # 0.5 10^3/ul (0.3-0.9); MONOCYTES % 4.2 % (0.0-11.0); NEUTROPHIL # 11.7 10^3/ul (1.6-7.5); NEUTROPHILS % 91.5 % (39.0-77.0); NUCLEATED RED BLOOD CELLS% 0.3 /100WBC (0.0-0.0); PLATELET COUNT 103 10^3/UL (140-415); RED BLOOD COUNT 2.26 10^6/ul (4.20-5.40); RED CELL DISTRIBUTION WIDTH 18.3 % (11.5-14.5)
[2018-01-08 22:38] LABS: WHITE BLOOD COUNT 12.8 10^3/ul (4.8-10.8)
[2018-01-08 22:40] LABS: POSITIVE DIFF @See below
[2018-01-08] MEDS: VASOPRESSIN 60 UNIT in DEXTROSE 5% 57 ML IV (22:54)
[2018-01-08] MEDS ORDERED: ARTIFICIAL TEARS 15 ML OPH BOTH EYES ×2 (23:30)
[2018-01-08] MEDS ORDERED: morphine (DRIP) 100 MG/100 ML 100 ML IV (23:30)
[2018-01-08] MEDS ORDERED: SOD CHLORIDE 0.9% IV (23:30)
[2018-01-08] MEDS ORDERED: MORPHINE IV (23:30)
[2018-01-08] MEDS ORDERED: DIMETHICONE STICK TOP (23:30)
[2018-01-09] MEDS: morphine (DRIP) 100 MG/100 ML 100 ML IV (00:45)
[2018-01-09] MEDS ORDERED: HEPARIN 1000 UNITS/ML 10 ML INJ CATHETER (07:00)
== END 2018-01-09 01:55 | disposition expired | DRG 252 ==
LOC: ICU 01-08 04:07 → E/R 02:06 → MS4 04:45
PROC: 03WY3JZ Revision of Synthetic Substitute in Upper Artery, Percutaneous Approach (ICD-10-PCS; principal; 2018-01-04 17:30)
PROC: 0BH17EZ Insertion of Endotracheal Airway into Trachea, Via Natural or Artificial Opening (ICD-10-PCS; 2018-01-04 17:42)
PROC: 5A1935Z Respiratory Ventilation, Less than 24 Consecutive Hours (ICD-10-PCS; 2018-01-04 17:42)
PROC: 4A033R1 Measurement of Arterial Saturation, Peripheral, Percutaneous Approach (ICD-10-PCS; 2018-01-04 17:42)
PROC: 30233N1 Transfusion of Nonautologous Red Blood Cells into Peripheral Vein, Percutaneous Approach (ICD-10-PCS; 2018-01-04 17:42)
PROC: 06HY33Z Insertion of Infusion Device into Lower Vein, Percutaneous Approach (ICD-10-PCS; 2018-01-04 17:42)
DX: T82.838A Hemorrhage due to vascular prosthetic devices, implants and grafts, initial encounter (principal); N18.6 End stage renal disease; J96.01 Acute respiratory failure with hypoxia; D62 Acute posthemorrhagic anemia; I12.0 Hypertensive chronic kidney disease with stage 5 chronic kidney disease or end stage renal disease; T82.868A Thrombosis due to vascular prosthetic devices, implants and grafts, initial encounter; E87.5 Hyperkalemia; I48.0 Paroxysmal atrial fibrillation; R57.1 Hypovolemic shock; I25.10 Atherosclerotic heart disease of native coronary artery without angina pectoris; E78.5 Hyperlipidemia, unspecified; I35.1 Nonrheumatic aortic (valve) insufficiency; D69.6 Thrombocytopenia, unspecified; R74.8 Abnormal levels of other serum enzymes; E83.39 Other disorders of phosphorus metabolism; Z95.0 Presence of cardiac pacemaker; D72.819 Decreased white blood cell count, unspecified; Z79.82 Long term (current) use of aspirin; I27.20 Pulmonary hypertension, unspecified; Z99.2 Dependence on renal dialysis; E03.9 Hypothyroidism, unspecified; Y83.2 Surgical operation with anastomosis, bypass or graft as the cause of abnormal reaction of the patient, or of later complication, without mention of misadventure at the time of the procedure
CPT/HCPCS: 31500; 36415; 36430; 36600; 71045; 80048; 80053; 80162; 82550; 82553; 82803; 82962; 83605; 83735; 84100; 84439; 84443; 84484; 85018; 85025; 85610; 85730; 86850; 86900; 86901; 86920; 87040; 87081; 87340; 90935; 93005; 93306; 93926; 93971; 94002; 94640; 94664; 94770; 96374; 96375; 99291-25